=== PATIENT | male | born 1955 | race Caucasian/White ===

== ENCOUNTER 2018-08-01 10:21 | Inpatient (IN) ==
[~2018-08-01 10:21] MED LIST: 0.9 % SODIUM CHLORIDE 9 ML, KETOROLAC 30 MG, ROPIVACAINE HCL/PF 49.5 ML, EPINEPHrine 0.... IJ SCH
[2018-08-01] MEDS: CELECOXIB 200 MG CAPSULE PO SCH (10:35)
[2018-08-01] MEDS: oxyCODONE 10 MG TAB.ER.12H PO SCH (10:35)
[2018-08-01] MEDS: ACETAMINOPHEN 500 MG TABLET PO SCH (10:35)
[2018-08-01] MEDS: PREGABALIN 75 MG CAPSULE PO SCH (10:35)
[2018-08-01] MEDS ORDERED: ceFAZolin 1 GM VIAL IV SCH (11:15)
[2018-08-01] MEDS ORDERED: GENTAMICIN SULFATE 800 MG/20 ML VIAL IR ONE (11:50)
[2018-08-01] MEDS ORDERED: TRANEXAMIC ACID 1,000 MG/10 ML VIAL IV ONE (12:10)
[2018-08-01] MEDS ORDERED: ONDANSETRON 4 MG/2 ML VIAL IV ONE (12:10)
[2018-08-01] MEDS ORDERED: GLYCOPYRROLATE 0.2 MG/ML VIAL IV ONE (12:10)
[2018-08-01] MEDS ORDERED: ROPIVACAINE HCL/PF 30 ML VIAL IJ ONE (12:10)
[2018-08-01] MEDS ORDERED: LIDOCAINE HCL/PF 100 MG/5 ML SYRINGE IV ONE (12:10)
[2018-08-01] MEDS ORDERED: PROPOFOL 200 MG/20 ML VIAL IV ONE (12:10)
[2018-08-01] MEDS ORDERED: SUCCINYLCHOLINE 20 MG/ML ML IV ONE (12:10)
[2018-08-01] MEDS ORDERED: PHENYLEPHRINE 10 MG/ML VIAL IV ONE (12:10)
[2018-08-01] MEDS ORDERED: DEXAMETHASONE 10 MG/ML VIAL IV ONE (12:10)
[2018-08-01] MEDS ORDERED: MIDAZOLAM 5 MG/5 ML VIAL IV ONE (12:10)
[2018-08-01] MEDS ORDERED: KETAMINE 100 MG/ML ML IV ONE (12:10)
[2018-08-01] MEDS ORDERED: HYDROmorphone 2 MG/ML VIAL IV ONE (12:10)
[2018-08-01] MEDS ORDERED: NEOSTIGMINE 1 MG/ML VIAL IV ONE (12:10)
[2018-08-01] MEDS ORDERED: ePHEDrine 50 MG/ML AMPUL IV ONE (12:10)
[2018-08-01] MEDS ORDERED: fentaNYL 250 MCG/5 ML VIAL IV ONE (12:10)
[2018-08-01] MEDS ORDERED: ROCURONIUM 10 MG/ML ML IV ONE (12:10)
[2018-08-01] MEDS ORDERED: ACETAMINOPHEN 1,000 MG/100 ML BOTTLE IV ONE (13:23)
[2018-08-01] MEDS ORDERED: FLUMAZENIL 0.1 MG/ML ML IV PRN (13:23)
[2018-08-01] MEDS ORDERED: BENZOCAINE/MENTHOL 1 LOZENGE PO PRN ×2 (13:23→13:40)
[2018-08-01] MEDS ORDERED: HYDROmorphone 2 MG/ML VIAL IV PRN (13:23)
[2018-08-01] MEDS ORDERED: METHOCARBAMOL 1,000 MG/10 ML VIAL IV PRN (13:23)
[2018-08-01] MEDS ORDERED: IPRATROPIUM/ALBUTEROL 3 ML AMPUL.NEB NEB PRN (13:23)
[2018-08-01] MEDS ORDERED: ONDANSETRON 4 MG/2 ML VIAL IV PRN ×2 (13:23→13:40)
[2018-08-01] MEDS ORDERED: NALOXONE HCL 0.4 MG/ML VIAL IV PRN (13:23)
[2018-08-01] MEDS ORDERED: LACTATED RINGERS 250 ML IV PRN (13:23)
[2018-08-01] MEDS ORDERED: MAGNESIUM HYDROXIDE 30 ML ORAL.SUSP PO PRN (13:40)
[2018-08-01] MEDS ORDERED: KETOROLAC 15 MG/ML VIAL IV PRN (13:40)
[2018-08-01] MEDS ORDERED: POLYETHYLENE GLYCOL 3350 17 GM PACKET PO PRN (13:40)
[2018-08-01] MEDS ORDERED: BISACODYL 10 MG SUPP.RECT PR PRN (13:40)
[2018-08-01] MEDS ORDERED: ACETAMINOPHEN 325 MG TABLET PO PRN (13:40)
[2018-08-01] MEDS ORDERED: FLEETS ADULT ENEMA PR PRN (13:40)
[2018-08-01] MEDS ORDERED: TRANEXAMIC ACID 1,000 MG/10 ML VIAL IV SCH (13:40)
--- NOTE | 2018-08-01 13:40 | Brief Operative Note ---
Date of procedure: 08/01/18 Pre-op diagnosis: left shoulder rca and bicep tear with djd Post-op diagnosis: same Procedure: left reverse tsa with bicep tenodesis Grafts/Implants: Yes Anesthesia: GETA Findings: severe djd Complications: none Surgeon: Indra Rodriguez Copy Technician: Maxim Castillo Estimated blood loss (cc): 120 Specimens Removed/Pathology: none sent Condition: stable Disposition: PACU
[2018-08-01] MEDS ORDERED: FUROSEMIDE 40 MG TABLET PO PRN (13:47)
[2018-08-01] MEDS ORDERED: WARFARIN 5 MG TABLET PO SCH (14:00)
--- NOTE | 2018-08-01 14:18 | Operative Note ---
DATE OF OPERATION: 08/01/2018 PREOPERATIVE DIAGNOSIS: Left shoulder rotator cuff arthropathy with severe degenerative arthritis and biceps tendinopathy. POSTOPERATIVE DIAGNOSIS: Left shoulder rotator cuff arthropathy with severe degenerative arthritis and biceps tendinopathy. PROCEDURE: Left reverse total shoulder with a biceps tenodesis. SURGEON: Indra Rodriguez MD GUILLOTINE OPERATOR: Tony Randhawa PA-C. ANESTHESIA: General LMA anesthesia. COMPLICATIONS: None. ESTIMATED BLOOD LOSS: About 120 mL DESCRIPTION OF PROCEDURE: The patient was brought to the operating room and put to sleep with general anesthesia. Once asleep, the patient had the left shoulder sterilely prepped and draped in the usual sterile fashion and sat in a beach chair position. Timeout was performed confirming the operative site. Once this was confirmed, we proceeded with a reverse total shoulder. Tranexamic acid and antibiotics have been given prior to the incision. Once done, we performed a deltopectoral approach through a 4 inch incision anteriorly. This identified the anterior deltopectoral interval. Cephalic vein was retracted laterally. A Vallejo retractor was placed. We elevated the conjoined tendon and released the subscap muscle and then irrigated thoroughly. We dislocated the head after releasing the inferior capsule, removed osteophytes and made our bony cut of the humeral head at the anatomical neck region. Once this was done, we then placed a protective plate and retracted this posteriorly, performed a 360 degree capsular release with release of the remnants of the biceps tendon. We irrigated thoroughly and identified the articular surface, placed a central pin and reamed with a 36 reamer and then a 40 reamer. We removed osteophytes, which were quite substantial. We then placed a metaglene with a central screw measuring 40 and two 32 mm screws and a 20 mm screw with good fixation. We placed a 40 mm head with 2 mm of offset, 2 mm of the eccentricity, positioned in the maximal inferior portion. Once reduced and tapped into place we irrigated thoroughly and then prepared the humerus. This was broached up to the size 11. We trialed the size 11 with a 4 poly. This seemed to be stable but about 3 mm of shuck or play. We irrigated thoroughly and then brought in a 6 mm poly. This seemed to give 1-2 mm of play and this was very stable. We irrigated thoroughly and then put into place a size 11 stem with a small amount of cement distally. Once done, we then placed a 6 mm poly and this was reduced. This gave excellent stability. We irrigated thoroughly and then repaired the subscap to the superior portion of the supraspinatus with #1 Ethibond and #1 Vicryl. The biceps tendon was tenodesed with #2 FiberWire to the pectoralis major. This was what appeared to be a distal tear as he did have a biceps deformity but the tear most likely resulted from a distal tear not a proximal tear and this was released at the time of surgery and then repaired. We irrigated thoroughly, repaired the fascial layer to the pec interval with #2 Vicryl and then the skin was closed with 2-0 Vicryl and adhesive closure. The patient was placed in a Donjoy sling. No complications. Blood loss about 120 mL. RB[facility]:almas Job ID: [id number] Doc ID: [id number] Indra Rodriguez MD
[2018-08-01] MEDS: fentaNYL 100 MCG/2 ML VIAL IV PRN ×2 (14:25→14:34)
--- NOTE | 2018-08-01 14:49 | XRay Report ---
CLINICAL INFORMATION: Post surgical follow-up TECHNIQUE: AP and Y view of the left shoulder COMPARISON: None. FINDINGS: Status post left reverse shoulder arthroplasty. There is postoperative soft tissue gas. Alignment is anatomic. IMPRESSION: Status post reverse left shoulder arthroplasty Interpreted and Authenticated by: Don Bueno 08/01/18
[2018-08-01] MEDS: 0.9 % SODIUM CHLORIDE 10 ML SYRINGE IV SCH ×2 (15:30→22:39)
[2018-08-01] MEDS: HYDROmorphone 2 MG/ML VIAL IV PRN ×2 (15:45→19:58)
[2018-08-01] MEDS: 0.45 % SODIUM CHLORIDE 1,000 ML IV SCH (15:46)
[2018-08-01] MEDS: oxyCODONE/APAP 5/325MG TABLET PO PRN (17:38)
[2018-08-01] MEDS: ceFAZolin 1 GM VIAL IV SCH (19:57)
[2018-08-01] MEDS ORDERED: TEMAZEPAM 15 MG CAPSULE PO PRN (21:00)
[2018-08-01] MEDS ORDERED: SENNOSIDES 1 TABLET PO SCH (21:00)
[2018-08-01] MEDS: DOCUSATE SODIUM 100 MG CAPSULE PO SCH (22:37)
[2018-08-02] MEDS: oxyCODONE/APAP 5/325MG TABLET PO PRN ×4 (00:03→09:25)
[2018-08-02] MEDS: HYDROmorphone 2 MG/ML VIAL IV PRN (00:04)
[2018-08-02] MEDS: 0.45 % SODIUM CHLORIDE 1,000 ML IV SCH ×2 (00:09→09:56)
[2018-08-02] MEDS: ceFAZolin 1 GM VIAL IV SCH (03:04)
[2018-08-02] MEDS: 0.9 % SODIUM CHLORIDE 10 ML SYRINGE IV SCH (05:20)
[2018-08-02] MEDS: oxyCODONE 10 MG TAB.ER.12H PO SCH (07:54)
[2018-08-02] MEDS: ACETAMINOPHEN 500 MG TABLET PO SCH (07:54)
[2018-08-02] MEDS: CELECOXIB 200 MG CAPSULE PO SCH (07:54)
[2018-08-02] MEDS: PREGABALIN 75 MG CAPSULE PO SCH (07:54)
--- NOTE | 2018-08-02 08:34 | Discharge Summary ---
Providers - Providers Patient information: Note initiated : 08/02/18 at 7:59 am Service Date, if different from initiated Date: [] Patient: Harrison Momin 63 y/o M admitted on 08/01/18 for Left Reverse Total Shoulder Arthroplasty. Chief Complaint: [] Remove dressing on post op day #1 May remove bandage on post op day #1 and shower. Do not rub or wash wound, but may get it wet. Date of admission: 08/01/18 Discharge date: 08/02/18 Attending physician: Indra Rodriguez Hospitalization Hospital course: POD #1: Patient educated on gait. Instructed on ROM limitations and expectation. Wound instructions reviewed. Physical Therapy is going to visit and do gait training, fall precautions, and walker. Advancing SANJAY Pain well controlled with oral pain medication. Drains removed - rutherford and joint. Discharge diagnosis: tsa Reason for admission: pain and tsa Procedures: tsa Exam - Exam Incision healing: Yes Incision draining: No Incision red: No Incision swollen: No Incision inflamed: No Clean and dry: No Weight bearing status: partial Ortho Discharge - TSA - Patient Instructions Diet: Regular Diet Activity: activity as tolerated, weight bearing as tolerated Total Shoulder Protocol: Leave immobilizer in place except for bathing and ROM. Abduction pillow. Continue to wear sling until seen by physician. Codman Pendulum : These exercises use momentum produced by your body to move your shoulder joint. Bend your knees and shift your weight to your front leg, then back, allowing your arm to swing in the same directions. Using the same technique, alternately shift your weight between your right and left legs, allowing your arm to swing from side to side. These exercises are also performed in counterclockwise and clockwise circular motions. Typically these exercises are performed several times per day, for a set number repetitions or minutes, such as 20 times in a row or 5 minutes at a time. - Follow Up Plan Disposition: Home, Self-Care Prognosis: Good Rehab Potential: Good I certify that the patient requires SNF services: No - Orders For Discharge Prescriptions: HYDROcodone/APAP 10/325MG [[place] 10-325Mg] 1 - 2 tab PO Q4H PRN #60 tab PRN Reason: Pain Methocarbamol [Robaxin-750] 750 mg PO QDAY #20 tab Additional Discharge Orders: Physical Therapy at Discharge - TSA Location: None Selected Physical Therapy at Discharge - TSA Location: None Selected Brace/Splint Location: None Selected Pending Studies Resuscitation Status Full Code Diet Regular Diet Start MonAug 01 Lunch Docusate Sodium (Colace) 100 mg PO BID [facility] Last Admin: 08/01/18 22:37 Dose: 100 mg Hydromorphone HCl (Dilaudid) 0 mg IV Q2HP PRN PRN Reason: PAIN LEVEL > 6 Last Admin: 08/02/18 00:04 Dose: 1 mg Admin: 08/01/18 19:58 Dose: 2 mg Admin: 08/01/18 15:45 Dose: 1 mg Sodium Chloride (Sodium Chloride 0.45%) 1,000 mls @ 100 mls/hr IV .Q10H [facility] Last Admin: 08/02/18 00:09 Dose: 100 mls/hr Infusion: 08/02/18 00:09 Dose: 100 mls/hr Admin: 08/01/18 15:46 Dose: 100 mls/hr Oxycodone/Acetaminophen (Percocet 5-325 Mg) 0 tab PO Q4HP PRN PRN Reason: PAIN LEVEL 3-6 Last Admin: 08/02/18 03:04 Dose: 1 tab Admin: 08/02/18 00:03 Dose: 1 tab Admin: 08/01/18 17:38 Dose: 2 tab Senna (Senokot) 2 tab PO HS [facility] Last Admin: 08/01/18 22:37 Dose: 2 tab Sodium Chloride (Saline Flush) 10 ml IV Q8 [facility] Last Admin: 08/02/18 05:20 Dose: Not Given Admin: 08/01/18 22:39 Dose: Not Given Admin: 08/01/18 15:30 Dose: Not Given Warfarin Sodium (Coumadin) 5 mg PO MOTUWETHFR@1400 [facility] Last Admin: 08/01/18 16:01 Dose: 5 mg Shift Summary 08/02/18 04:34 Shift Summary by Chano Simental RM 129 Harrison Momin A/O slurred speech, appears normal for pt; DRSG to L shoulder CDI; Up to BR x3. Abx Ancef 2 gm; Tye hose; PVR 178 mls at 2300; Voided 350 mls, PVR 235 @ 0206; Voided 550 with PVR 224 @ 0333; Dilaudid x2; Percocet x1 PRN pain; Girlfriend says pt has unsteady gait and prone to falls; Pt ambulated x2 To and from balthroom to bed independently, Requested Pt use call light for SBA, pt agreed; Requests referral for pt; Wants to drive pt home @ 1000 Initialized on 08/02/18 04:34 - END OF NOTE
--- NOTE | 2018-08-02 08:34 | Discharge Summary ---
Ortho Discharge - TSA - Patient Instructions Diet: Regular Diet Activity: activity as tolerated, weight bearing as tolerated Total Shoulder Protocol: Leave immobilizer in place except for bathing and ROM. Abduction pillow. Continue to wear sling until seen by physician. Codman Pendulum : These exercises use momentum produced by your body to move your shoulder joint. Bend your knees and shift your weight to your front leg, then back, allowing your arm to swing in the same directions. Using the same technique, alternately shift your weight between your right and left legs, allowing your arm to swing from side to side. These exercises are also performed in counterclockwise and clockwise circular motions. Typically these exercises are performed several times per day, for a set number repetitions or minutes, such as 20 times in a row or 5 minutes at a time. Dressing Care: May shower in 2 days - Follow Up Plan Disposition: Home, Self-Care Prognosis: Good Rehab Potential: Good I certify that the patient requires SNF services: No Overall status at discharge: patient is progressing back to baseline - Orders For Discharge Prescriptions: HYDROcodone/APAP 10/325MG [[place] 10-325Mg] 1 - 2 tab PO Q4H PRN #60 tab PRN Reason: Pain Additional Discharge Orders: Physical Therapy at Discharge - TSA Location: None Selected Physical Therapy at Discharge - TSA Location: None Selected Brace/Splint Location: None Selected
--- NOTE | 2018-08-02 08:34 | Orthopedic Progress Note ---
Subjective Patient information: Note initiated : 08/02/18 at 7:58 am Service Date, if different from initiated Date: [] Patient: Harrison Momin 63 y/o M admitted on 08/01/18 for Left Reverse Total Shoulder Arthroplasty. Chief Complaint: [minimal pain and amb well co of pain only Objective Vital signs: Vital Signs Temp Pulse Resp BP BP Pulse Ox 08/02/18 07:19 98.3 F 67 14 121/69 93 08/02/18 03:27 97.5 F 67 16 129/71 94 08/02/18 00:00 97.9 F 69 16 113/72 93 08/01/18 20:00 97.7 F 77 16 124/72 92 08/01/18 16:00 97.5 F 20 126/84 96 08/01/18 14:51 97.4 F 67 14 116/71 95 08/01/18 14:41 61 10 L 118/82 96 08/01/18 14:31 61 12 103/64 96 08/01/18 14:21 62 12 127/85 90 08/01/18 14:16 67 17 120/74 91 08/01/18 14:11 64 17 114/69 96 08/01/18 14:06 97.6 F 62 11 L 143/50 97 08/01/18 10:21 97.8 F 65 16 133/91 97 Intake and Output 08/01/18 08/02/18 08/02/18 21:59 05:59 13:59 Intake Total 2220 / 2220 1388 / 1388 Output Total 425 / 425 800 / 800 650 / 650 Balance 1795 / 1795 588 / 588 -650 / -650 Intake: IV 838 / 838 Sodium Chloride 0.45% 1,000 ml 838 / 838 @ 100 mls/hr IV .Q10H [facility] Rx#: [id number] Oral 520 / 520 550 / 550 IV - Manual Only 1700 / 1700 Output: Void Amount 275 / 275 800 / 800 650 / 650 Estimated Blood Loss 150 / 150 Other: Meal Dinner Percent of Meal Consumed 100% Feeding Ability Independent Urine Appearance Clear Clear Urine Color Straw Straw Urine Odor Normal Normal Weight 245 lb 8 oz Intake & Output: Intake & Output 08/01/18 08/02/18 08/02/18 21:59 05:59 13:59 Intake Total 2220 / 2220 1388 / 1388 Output Total 425 / 425 800 / 800 650 / 650 Balance 1795 / 1795 588 / 588 -650 / -650 Weight 245 lb 8 oz Intake: IV 838 / 838 Sodium Chloride 0.45% 1,000 ml 838 / 838 @ 100 mls/hr IV .Q10H [facility] Rx#: [id number] Oral 520 / 520 550 / 550 IV - Manual Only 1700 / 1700 Output: Void Amount 275 / 275 800 / 800 650 / 650 Estimated Blood Loss 150 / 150 Other: Meal Dinner Percent of Meal Consumed 100% Feeding Ability Independent Urine Appearance Clear Clear Urine Color Straw Straw Urine Odor Normal Normal Incision: Yes healing Incision clean and dry: Yes Dressing: Yes clean Weight bearing status: full Neurological exam IM: Yes oriented X3, Yes neurovascular intact Extremities exam IM: Yes Foot pink and warm, Yes neurovascular intact - [place] Pulses Peripheral pulses: 1+: radial (L), radial (R) - Labs Labs: Orthopedic Labs 08/02/18 04:35 PT 13.5 INR 1.0
[2018-08-02] MEDS: DOCUSATE SODIUM 100 MG CAPSULE PO SCH ×2 (09:03→09:05)
[2018-08-02] MEDS ORDERED: NICOTINE 21 MG PATCH TOPICAL SCH (10:00)
[2018-08-04] MEDS ORDERED: WARFARIN 7.5 MG TABLET PO SCH (14:00)
== END 2018-08-02 11:25 | disposition home or self-care (01) | DRG 483 ==
LOC: MEDSUR 10:21
PROVIDERS: ADMIT Orthopaedic Surgery; ATTEND Orthopaedic Surgery
CPT/HCPCS: 97161